=== PATIENT | female | born 1965 | race Caucasian/White ===

== ENCOUNTER 2016-10-27 00:39 | Emergency (ER) | payer BC ==
[2016-10-27] MEDS ORDERED: ALBUTEROL SULFATE/IPRATROPIUM 3 ML NEBU IH ONE ×2 (00:55)
--- OUTSIDE RECORDS SUMMARY | 2016-10-27 01:18 | XMS REPORT | Continuity of Care Document ---
:1965 Author Organization [facility] ([facility]) Address [address] [place] [place] [address] Phone [phone] Care Team Providers Name Role Phone Alfonso Davidson Primary Care Provider [phone] Source Comments This disclosure is being made pursuant to the Care Everywhere program, applicable federal and state laws, and may not contain all informaitonavailable regarding this patient.[facility] ([facility]) Active Allergies and Adverse Reactions No Known Allergies Current Medications Prescription Sig. Disp. Refills Start Date End Date Status propranolol 60 mg XR 1 capsule daily. 0 07/31/2015 Active capsule lansoprazole 30 mg 1 capsule 2 times 11 07/30/2015 Active capsule daily. montelukast 10 mg Take 10 mg by mouth Active tablet daily. albuterol 90 Use 2 Puffs by Active mcg/Actuation inhaler inhalation every 6 hours as needed. omega-3 fatty acids 1 Take 2 g by mouth Active gram capsule daily. BUTALBITAL/ASPIRIN/CAFF Active EINE (FIORINAL PO) butalbital-acetaminophe Take 1 capsule by Active g-wzadvlkc-yncsary mouth every 4 hours [id number] mg per as needed. capsule Active Problems Problem Noted Date Multinodular goiter (nontoxic) 08/15/2015 Social History Tobacco Use Types Packs/Day Years Used Date Never Smoker Smokeless Tobacco: Never Used Tobacco Cessation:Counseling Given: Yes Comments: Alcohol Use Drinks/Week oz/Week Comments No Last Filed Vital Signs Vital Sign Reading Time Taken Blood Pressure 130/69 08/15/2015 9:31 AM CDT Pulse 74 08/15/2015 9:31 AM CDT Temperature 36.1 C (97 F) 08/15/2015 9:31 AM CDT Respiratory Rate - - Height 1.67 m (5' 5.75") 08/15/2015 9:31 AM CDT Weight 121.1 kg (266 lb 15.6 oz) 08/15/2015 9:31 AM CDT Body Mass Index 43.42 08/15/2015 9:31 AM CDT Oxygen Saturation - - Plan of Care Health Maintenance Due Date Last Done Comments HCV Screening 1965 Hepatitis B Vaccine (1 of 3 - Primary Series) 1965 Tdap Vaccine 08/27/1974 Lipid Disorder Screening 08/27/1981 MMR Vaccine 08/27/1981 Td Vaccine 08/27/1981 Cervical Cancer Screening 08/27/1993 Mammogram 2003 Colonoscopy 08/27/2013 Influenza Vaccine: Seasonal (#1) 12/31/2015 Results from Last 3 Months Not on file
[2016-10-27] MEDS ORDERED: predniSONE 20 MG TABLET PO ONE (01:20)
[2016-10-27] MEDS ORDERED: predniSONE 20 MG TABLET ONE (01:23)
[2016-10-27 01:47] LABS: Hematocrit 44.5 % (37.0-47.0); Hemoglobin 14.7 gm/dL (12.5-16.0); Mean Cell Volume 91.2 fl (78-100); Mean Corpuscular Hemoglobin 30.1 pg (27-31); Mean Platelet Volume 8.6 fl (6.0-9.5); Neutrophil # 3.7 K/mm3 (1.3-6.0); Platelet Count 266 K/mm3 (150-450); Red Blood Count 4.88 M/mm3 (4.2-5.4); Red Cell Distribution Width 12.7 % (11.5-14.0); White Blood Count 7.7 K/mm3 (4.0-10.5)
[2016-10-27 01:55] LABS: Anion Gap 9.1 mmol/L (6.8-13.8); Calcium * 8.7 mg/dL (7.9-10.9); Carbon Dioxide 31.2 mmol/L (24-32.6); Estimated Creat Clear 64.1; Potassium 4.3 mmol/L (3.4-4.6)
--- NOTE | 2016-10-27 02:11 | ERNOTE ---
Date of Service: 10/27/16 Time Seen by Provider: 10/27/16 01:20 Stated Complaint: ASTHMA PROBLEM Presenting Symptoms:: other - short of breath Source: patient, family Exam Limitations: no limitations Immunizations: IMMUNIZATION HX Immunizations Up to Date Yes History of Influenza Vaccine Yes Hx Pneumococcal Vaccination Yes Allergies/Adverse Reactions: Allergies morphine Allergy (Verified 10/27/16 00:50) Home Medications: HOME MEDICATIONS Propranolol HCl [Inderal] 60 mg PO DAILY 09/18/13 [Last Taken Unknown] Albuterol Sulfate [Ventolin Hfa] 8 gm IH PRN PRN 09/17/14 [Last Taken Unknown] Montelukast Sodium [Singulair] 10 mg PO DAILY 09/17/14 [Last Taken Unknown] Dicyclomine HCl [Bentyl] 10 mg PO BID 10/27/16 [Last Taken Unknown] - History of Present Ilness Date (Duration): 10/27/16 Time (Timing): 01:21 Timing: constant Severity: mild Frequency/Possible Cause: Reports: occasional episodes Modifying Factors - Improves: Reports: other - albuterol Modifying Factors - Worsens: Reports: activity - activity and being outside Associated Symptoms: Reports: denies symptoms Prior Treatment: Reports: other - followed with suicidal or homicidal is clear 20 Review of Systems - Review of Systems Constitutional: Present: no symptoms reported EYE: Present: no symptoms reported ENT: Present: no symptoms reported Respiratory: Present: shortness of breath Cardiology: Present: no symptoms reported Gastrointestinal/Abdominal: Present: no symptoms reported Genitourinary: Present: no symptoms reported Musculoskeletal: Present: no symptoms reported Neurological: Present: no symptoms reported Endocrine: Present: no symptoms reported Hematologic/Lymphatic: Present: no symptoms reported Psych: Present: no symptoms reported - Patient's Past Medical History Patient History - Medical: GERD, Other Patient History - Cardiac/Respiratory: Asthma, Hypertension Patient History - Cancer: No Hx of Cancer Patient History - Surgical Procedures: Appendectomy, Colonoscopy, Hysterectomy, Total Knee Replacement, T & A, Other Patient History - Other: None LMP (females 10-50): 1993 - Family History Mother Family History - Medical: Arthritis, Migraines, Other Family History - Cardiac/Respiratory: Hyperlipidemia Father Family History - Medical: Other Family History - Cardiac/Respiratory: CVA/Stroke, Hypertension, Hyperlipidemia, Other - Social History Living Situations: spouse Abuse History: No History of abuse Psych History: No pertinent hx Smoking Status: Never smoker Have you smoked in the past 12 months: No Do you dip or chew tobacco: No Alcohol Use: occasionally Drug Use: none - Immunizations Immunizations Up to Date: Yes Hx Pneumococcal Vaccination: Yes History of Influenza Vaccine: Yes Physical Exam - Physical Exam General Appearance: Present: wd/wn, alert, no apparent distress Eye Exam: Normal inspection: bilateral - normal Exam, PERRL: bilateral, EOMI: bilateral Ears, Nose, Throat: Present: normal ENT inspection, normal pharynx Neck: Present: normal inspection, nontender Respiratory: Present: no respiratory distress, normal breath sounds, no accessory muscle use, chest nontender, lungs clear Cardiovascular/Chest: Present: regular rate, rhythm, no murmur, normal peripheral pulses Peripheral Pulses: N=norm/S=strong/W=weak/B=bound/A=absent: Carotid (R): Normal , Carotid (L): Normal, Dorsalis-pedis (R): Normal, Dorsalis-pedis (L): Normal Gastrointestinal/Abdominal: Present: normal bowel sounds, nontender, nondistended, soft, no organomegaly Rectal Exam: Present: deferred Back Exam: Present: normal inspection, normal range of motion, no CVA tenderness , no vertebral tenderness Extremity Exam: Present: normal inspection, non-tender, normal range of motion, no edema Neurological Exam: Present: alert, oriented, normal mood/affect, no motor/ sensory deficits Skin Exam: Present: normal color, warm/dry Lymphatic Exam: Present: no adenopathy ED Progress - Results and Orders Patient's Lab Results:: I have reviewed the patient's lab results. - Vital Signs Patient's Vital Signs:: I have reviewed the patient's vital signs. Vital Signs: Vital Signs 10/27/16 10/27/16 00:44 00:57 Temperature 36.1 C L Pulse Rate 78 79 Respiratory 18 16 Rate Blood Pressure 169/82 O2 Sat by Pulse 94 94 Oximetry - Progress/Reassessment Chief Complaint: Asthma Departure - Departure Clinical Impression: Asthma Disposition: Home self-care Condition: Good Additional Instructions: Please take prednisone 40 mg daily for the next 5 days. He may use your albuterol hand-held inhaler using technique discussed tonight every 4-6 hours as needed. Follow up on an as-needed basis Referrals: Alfonso Beauchamp MD [Primary Care Provider] -
[2016-10-27 02:52] VITALS: BP 156/78
== END 2016-10-27 02:51 | disposition home or self-care (01) ==
LOC: ER 00:39
DX: J45.909 Unspecified asthma, uncomplicated (principal); I10 Essential (primary) hypertension